=== PATIENT | female | born 1950 | race Caucasian/White ===

== ENCOUNTER 2022-12-21 10:53 | Day surgery (SDC) | payer MEDICARE ==
[~2022-12-21] VITALS: Ht 162.6 cm; Wt 49.2 kg
[2022-12-21] VITALS (7 sets, daily range): BP systolic 122–162; BP diastolic 71–98; PULSE 90–115; RESP 12–16; TEMP 97.4; O2SAT 94–97
[2022-12-21 11:47] LABS: BASOPHILS % (AUTO) 0.4 % (0-1); EOSINOPHILS % (AUTO) 0.7 % (0-6); HEMATOCRIT 42.3 % (35.0-45.0); HEMOGLOBIN 14.3 g/dl (12.0-16.0); LYMPHOCYTES # (AUTO) 0.2 X10'3 (1.1-4.8); LYMPHOCYTES % (AUTO) 4.4 % (21-51); MEAN CORPUSCULAR HEMOGLOBIN 33.4 PG (27.0-31.0); MEAN CORPUSCULAR HGB CONC 33.8 g/dL (33.0-36.5); MEAN CORPUSCULAR VOLUME 98.8 FL (78-98); MEAN PLATELET VOLUME 7.9 FL (7.4-10.4); MONOCYTES # (AUTO) 0.5 X10'3 (0-0.9); MONOCYTES % (AUTO) 9.2 % (2-12); NEUTROPHILS # (AUTO) 4.7 X10'3 (1.8-7.7); NEUTROPHILS % (AUTO) 85.3 % (42-75); PLATELET COUNT 315 X10'3 (140-440); RED BLOOD COUNT 4.28 X10'6 (4.20-5.60); RED CELL DISTRIBUTION WIDTH 14.9 % (11.5-14.5); WHITE BLOOD COUNT 5.5 X10'3 (4.5-11.0)
[2022-12-21 11:53] LABS: PROTHROMBIN TIME 10.4 SECONDS (9.0-12.0)
[2022-12-21] MEDS ORDERED: LIDOcaine 1% 30ml preserv. free vial ONE (12:33)
[2022-12-21] MEDS ORDERED: fentaNYL/PF 50MCG/1 ML 2ML syringe ONE ×2 (12:33→13:45)
[2022-12-21] MEDS ORDERED: midazolam 1 mg/ML 2ml injection ONE ×2 (12:33→13:45)
[2022-12-21] MEDS ORDERED: heparin sodium, porcine/PF 100unit/ml 5ML syringe ONE (12:33)
[2022-12-21] MEDS ORDERED: glucagon, human recombinant 1mg kit ONE (12:39)
[2022-12-21] MEDS ORDERED: iohexol 300 MG/1 ML 50ml polymer ONE (12:39)
[2022-12-21] MEDS ORDERED: ALBU17AE26 (13:03)
[2022-12-21] MEDS ORDERED: ONDA-103 PO (13:03)
[2022-12-21] MEDS ORDERED: FAMO40SU3 PO (13:03)
[2022-12-21] MEDS ORDERED: FOLI1TAB27 PO (13:03)
[2022-12-21] MEDS ORDERED: SERT-433 PO (13:03)
[2022-12-21] MEDS ORDERED: HYDR-3973 PO (13:03)
[2022-12-21] MEDS ORDERED: GUAI120L55 PO (13:03)
[2022-12-21] MEDS ORDERED: HYDROcodone/acetaminophen 5mg/325mg tablet PO ONE ×2 (15:50→15:55)
== END 2022-12-21 16:40 | disposition home or self-care (01) ==
LOC: SSTAY O 10:53
PROVIDERS: ATTEND Radiology Vascular & Interventional Radiology
DX: C34.31 Malignant neoplasm of lower lobe, right bronchus or lung (principal); R13.10 Dysphagia, unspecified; Z88.5 Allergy status to narcotic agent; Z96.653 Presence of artificial knee joint, bilateral; Z90.710 Acquired absence of both cervix and uterus; Z98.890 Other specified postprocedural states
CPT/HCPCS: 36561; 49440; 76937; 77001; 85025; 85610; 99152; 99153; C1713; C1769; C1788; J1610; J1642; J2250; J3010; J3490; J7030; Q9967; A4615; A4620; B4087; C1894